=== PATIENT | male | born 1950 | race Caucasian/White ===

== ENCOUNTER → 2023-09-12 14:10 | Outpatient (BNVA) | payer MEDICARE, BC, SELFPAY | PROVIDERS: PCP Internal Medicine; Visit Provider Specialist | DX: R29.90 Unspecified symptoms and signs involving the nervous system (principal); G44.329 Chronic post-traumatic headache, not intractable; F07.81 Postconcussional syndrome | CPT/HCPCS: 99204 ==

== ENCOUNTER → 2024-04-11 14:45 | Outpatient (BNVA) | payer MEDICARE, BC, SELFPAY | PROVIDERS: PCP Internal Medicine; Visit Provider Specialist | DX: R29.90 Unspecified symptoms and signs involving the nervous system (principal); R03.0 Elevated blood-pressure reading, without diagnosis of hypertension; G44.329 Chronic post-traumatic headache, not intractable; F07.81 Postconcussional syndrome | CPT/HCPCS: G0463 ==

== ENCOUNTER → 2024-04-22 15:30 | Outpatient (BNVA) | payer MEDICARE, BC, SELFPAY | PROVIDERS: PCP Internal Medicine; Visit Provider Specialist | DX: R29.90 Unspecified symptoms and signs involving the nervous system (principal); R03.0 Elevated blood-pressure reading, without diagnosis of hypertension; G44.329 Chronic post-traumatic headache, not intractable | CPT/HCPCS: 99214 ==

== ENCOUNTER → 2024-07-24 09:14 | Outpatient (BNVA) | payer MEDICARE, BC, SELFPAY | PROVIDERS: PCP Internal Medicine; Visit Provider Specialist | DX: F07.81 Postconcussional syndrome (principal); G44.329 Chronic post-traumatic headache, not intractable | CPT/HCPCS: 99214 ==